=== PATIENT | male | born 1950 | race Caucasian/White ===

== ENCOUNTER → 2021-01-27 | Outpatient (CLI) | payer BC ==
--- NOTE | 2021-01-30 06:19 | PE ---
EXAMINATION TYPE: PET CT fusion skull to thigh DATE OF EXAM: 01/27/2021 COMPARISON: Outside CT lung cancer screening January 18, 2021 HISTORY: Abnormal CT, lung nodule. TECHNIQUE: Following the intravenous administration of 19.215 mCi of F-18 FDG, whole body images are performed from the skull base to the midthigh. Images are reviewed on the computer in the coronal, axial, and sagittal planes. Reconstructed rotating images are created on independent workstation and reviewed on the computer. A localization and attenuation correction CT is performed in conjunction with the PET scan. Blood glucose level equals 81 SCAN: Initial Scan FINDINGS: SKULL BASE AND NECK: No areas of suspicious abnormal hypermetabolic uptake. CHEST, MEDIASTINUM, AND HILAR REGION: Persistent medial right upper lobe groundglass nodule measuring 1.5 x 1.2 cm axial image 67 is ametabolic. Stable 8 mm subpleural superior left lower lobe nodule axial image 89 is mild hypermetabolic uptake, max SUV 3.06. Prominent 1.2 x 1.2 cm paracarinal lymph node, mild hypermetabolic uptake Max SUV 2.53. Max SUV left hilar region 2.95 axial image 87. ABDOMEN AND PELVIS: Nonspecific gastric uptake at Site of wall thickening could reflect gastritis. No adrenal mass. Normal excretion. No suspicious hypermetabolic uptake. OSSEOUS STRUCTURES: No suspicious hypermetabolic uptake. OTHER CT: Patchy opacification left frontal sinus. Moderate coronary artery calcification. Bilateral pars defect with grade 1 anterolisthesis L5 on S1. Multilevel spurring in the spine. Multilevel facet arthropathy mid to lower lumbar spine. IMPRESSION: Nonspecific finding, cannot rule out early neoplasm particularly the 8 millimeter slightl y hypermetabolic superior posterior left lower lobe nodule. Nonspecific thoracic lymph nodes. No meta static disease is evident.
== END | disposition home or self-care (01) ==
LOC: RADPETMAIN 14:35
PROVIDERS: ATTEND Internal Medicine Critical Care Medicine
DX: R91.8 Other nonspecific abnormal finding of lung field (principal)
CPT/HCPCS: 78815; A9552

== ENCOUNTER → 2021-05-31 | Outpatient (CLI) | payer MEDICARE ==
[2021-05-31 12:10] LABS: African American GFR (CKD) >90 (>60 ml/min/1.73 sqM); Blood Urea Nitrogen 21 mg/dL (9-20); Non-African American GFR(CKD) >90 (>60 ml/min/1.73 sqM)
--- NOTE | 2021-05-31 12:57 | CT ---
EXAMINATION TYPE: CT chest w con DATE OF EXAM: 05/31/2021 COMPARISON: Head CT 01/27/2021 HISTORY: History of lung cancer. CT DLP: 602 mGycm Automated exposure control for dose reduction was used. CONTRAST: CT scan of the chest is performed with IV Contrast, patient injected with 100 mL of Isovue M300. FINDINGS: LUNGS: Stable pulmonary nodule right upper lobe measuring 1.5 cm in greatest dimension versus 1.5 cm previously. Additional stable pulmonary nodule left lower lobe measures 8 mm versus 8 mm previously. There is no pleural effusion or pneumothorax seen. The tracheobronchial tree is patent. MEDIASTINUM: There are no greater than 1 cm hilar or mediastinal lymph nodes. No pericardial effusi on is seen. Thoracic aorta is of normal caliber. The heart is not enlarged. UPPER ABDOMEN: No significant abnormality appreciated. OTHER: No additional significant abnormality is seen. IMPRESSION: Stable pulmonary nodularity as discussed. Malignancy is not excluded.
== END | disposition home or self-care (01) ==
LOC: RADCTMAIN 11:23
PROVIDERS: ATTEND Internal Medicine Critical Care Medicine
DX: R91.8 Other nonspecific abnormal finding of lung field (principal); Z85.118 Personal history of other malignant neoplasm of bronchus and lung
CPT/HCPCS: 82565; 84520; 71260; 36415; Q9967

== ENCOUNTER → 2021-11-08 | Outpatient (CLI) | payer MEDICARE ==
[2021-11-08 11:24] LABS: African American GFR (CKD) >90 (>60 ml/min/1.73 sqM); Blood Urea Nitrogen 18 mg/dL (9-20); Non-African American GFR(CKD) 88 (>60 ml/min/1.73 sqM)
--- NOTE | 2021-11-08 12:07 | CT ---
EXAMINATION TYPE: CT chest w con DATE OF EXAM: 11/08/2021 COMPARISON: 05/31/2021 HISTORY: Follow up abnormal lung field CT DLP: 341.5 mGycm Automated exposure control for dose reduction was used. TECHNIQUE: CT scan of the chest is performed with IV Contrast, patient injected with 100 mL of Isovue 300. MIP Images are created on CT scanner and reviewed. 3D reconstructed images are created on an independent workstation and reviewed. FINDINGS: LUNGS: Stable 1.5 cm right upper lobe pulmonary nodule. Stable 8 mm nodule left lower lobe. No consol idation or pleural effusion. No pneumothorax. No new pulmonary nodules. Apical pleural thickening sta ble. Emphysematous changes are suggested. There is very mild interlobular septal thickening correlate for mild chronic interstitial lung disease. MEDIASTINUM: Heart is enlarged and shotty adenopathy in the mediastinum. No pericardial effusion. Cor onary artery calcification noted. OTHER: Hypertrophic and degenerative changes of the spine. Arthropathy of the right shoulder. IMPRESSION: 1. Stable pulmonary nodules unchanged from prior exam.
== END | disposition home or self-care (01) ==
LOC: RADCTMAIN 10:19
PROVIDERS: ATTEND Internal Medicine Critical Care Medicine
DX: R91.8 Other nonspecific abnormal finding of lung field (principal)
CPT/HCPCS: 82565; 84520; 71260; 36415; Q9967

== ENCOUNTER → 2022-05-31 | Outpatient (CLI) | payer MEDICARE ==
[2022-05-31 12:51] LABS: African American GFR (CKD) >90 (>60 ml/min/1.73 sqM); Blood Urea Nitrogen 17 mg/dL (9-20); Non-African American GFR(CKD) 89 (>60 ml/min/1.73 sqM)
--- NOTE | 2022-05-31 13:51 | CT ---
EXAMINATION TYPE: CT chest w con CT DLP: 324 mGycm, Automated exposure control for dose reduction was used. DATE OF EXAM: 05/31/2022 1:25 PM COMPARISON: CT chest 11/08/2021, 05/31/2021, PET/CT 01/27/2021. CLINICAL INDICATION:Male, 71 years old with history of R91.8 OTHER NONSPECIFIC AB FINDING OF LUNG FIE LD; PHH, Routine check of lung nodules, pt not reporting any issues TECHNIQUE: Multiple axial images were obtained through the chest following the administration of 70 c c of Isovue 300. FINDINGS: LUNGS/ PLEURA: No pneumothorax, pleural effusion, or focal consolidation. Stable 2.0 cm medial right upper lobe groundglass nodule when measuring with similar technique (series 4, image 12). Stable 11 mm peripheral left lower lobe ground glass nodule (series 4, image 26). However these 2 lesions have marginally increased in size from prior CT. No new pulmonary nodules. Minimal upper lobe predominant centrilobular emphysematous changes suggested. AIRWAY: Patent and unremarkable.. HEART: Size within normal limits. No pericardial effusion. MEDIASTINUM: No gross evidence of adenopathy. VASCULATURE: No aortic aneurysm. Coronary artery calcifications. MUSCULOSKELETAL: No acute osseous abnormalities SOFT TISSUES/LYMPH NODES: Unremarkable. LOWER NECK: No significant findings. UPPER ABDOMEN: No significant findings. IMPRESSION: Stable right upper lobe and left lower lobe ground less nodules from most recent CT exam on , however these are marginal increased in size when compared to prior PET/CT 01/27/2021. Cannot rule out slow-growing neoplasm. Consider direct sampling.
== END | disposition home or self-care (01) ==
LOC: RADCTMAIN 12:11
PROVIDERS: ATTEND Internal Medicine Critical Care Medicine
DX: R91.8 Other nonspecific abnormal finding of lung field (principal)
CPT/HCPCS: 71260; 82565; 84520

== ENCOUNTER → 2024-08-10 | Outpatient (CLI) | payer MEDICARE ==
[2024-08-10 10:06] LABS: African American GFR (CKD) 87 (>60 ml/min/1.73 sqM); Blood Urea Nitrogen 20 mg/dL (9-20); Non-African American GFR(CKD) 75 (>60 ml/min/1.73 sqM)
--- NOTE | 2024-08-10 12:03 | CT ---
EXAMINATION TYPE: CT chest w con DATE OF EXAM: 08/10/2024 COMPARISON: 08/13/2023 and 05/31/2021 HISTORY: Follow up lung nodules CT DLP: 344.60 mGycm Automated exposure control for dose reduction was used. CONTRAST: CT scan of the chest is performed with IV Contrast, patient injected with 100 mL of Isovue 300. FINDINGS: LUNGS: Nodule right upper lobe is stable when compared to 2022 however has enlarged since 2020 and cu rrently measures 2.4 x 1.5 cm versus 2.4 x 1.3 cm. Consider PET/CT if felt to be indicated. Pleural-b ased left lower lobe pulmonary nodule seen on image 28 has enlarged and measures 1.5 cm versus 1.0 cm previously. The lungs are otherwise clear. MEDIASTINUM: There are no greater than 1 cm hilar or mediastinal lymph nodes. No pericardial effusi on is seen. Thoracic aorta is of normal caliber. The heart is not enlarged. UPPER ABDOMEN: No significant abnormality appreciated. OTHER: No additional significant abnormality is seen. IMPRESSION: 1. Nonspecific, pulmonary nodularity. Consider PET/CT if felt clinically indicated. [facility], , 08/10/2024 12:01 PM
== END | disposition home or self-care (01) ==
LOC: RADCTMAIN 09:24
PROVIDERS: ATTEND Internal Medicine Critical Care Medicine
DX: R91.8 Other nonspecific abnormal finding of lung field (principal)
CPT/HCPCS: 36415; 71260; 82565; 84520